=== PATIENT | male | born 1950 | race African-American/Black ===

== ENCOUNTER 2016-12-16 09:54 | Inpatient (IN) | payer OTHER ==
[2016-12-16] MEDS ORDERED: ZOFRAN INJ 4 MG VIAL IVP PRN (12:21)
[2016-12-16] MEDS ORDERED: HumuLIN R SUBCUT PRN (12:21)
[2016-12-16 13:37] LABS: BASOPHILS # (AUTO) 0.1 X10^3/uL (0.0-0.1); BASOPHILS % (AUTO) 1.3 % (0.2-1.0); EOSINOPHILS # (AUTO) 0.3 x10^3/uL (0.0-0.2); EOSINOPHILS % (AUTO) 3.2 % (0.9-2.9); HEMATOCRIT 34.6 % (42.0-54.0); HEMOGLOBIN 11.5 g/dL (13.5-18.0); LYMPHOCYTES # (AUTO) 2.9 X10^3/uL (1.3-2.9); LYMPHOCYTES % (AUTO) 32.7 % (21.0-51.0); MEAN CORPUSCULAR HEMOGLOBIN 26.8 pg (27.0-34.0); MEAN CORPUSCULAR HGB CONC 33.2 g/dL (33.0-35.0); MONOCYTES # (AUTO) 0.7 x10^3/uL (0.3-0.8); MONOCYTES % (AUTO) 8.5 % (0.0-13.0); NEUTROPHILS # (AUTO) 4.7 x10^3/uL (2.2-4.8); NEUTROPHILS % (AUTO) 54.3 % (42.0-75.0); PLATELET COUNT 245 X10^3/uL (150.0-450.0); RED BLOOD COUNT 4.27 X10^6/uL (4.7-6.0); RED CELL DISTRIBUTION WIDTH 14.9 % (11.6-16.5); WHITE BLOOD COUNT 8.7 X10^3/uL (3.6-10.0)
[2016-12-16 14:15] LABS: ALANINE AMINOTRANSFERASE 22 Units/L (12-78); ALBUMIN 3.3 g/dL (3.4-5.0); ALKALINE PHOSPHATASE 83 Units/L (46-116); ASPARTATE AMINO TRANSFERASE 15 Units/L (15-37); BLOOD UREA NITROGEN 60 mg/dL (7-18); CALCIUM 8.6 mg/dL (8.5-10.1); CARBON DIOXIDE 17.6 mmol/L (21-32); CHLORIDE 105 mmol/L (98-107); COR CA(FOR HYPOALB) 9.2 mg/dL (8.5-10.1); CREATININE 3.83 mg/dL (0.70-1.30); GLUCOSE 99 mg/dL (65-99); SODIUM 136 mmol/L (136-145); eGFR BLACK RACES 20 (>60); eGFR NON BLACK RACES 17 (>60)
[2016-12-16] MEDS: NS 1000 ML 1,000 ML IV SCH (14:58)
[2016-12-16 15:24] LABS: BILIRUBIN,URINE NEGATIVE (NEGATIVE); BLOOD/HEMOGLOBIN,URINE NEGATIVE (NEGATIVE); GLUCOSE, URINE NEGATIVE (NEGATIVE); KETONES,URINE NEGATIVE (NEGATIVE); LEUKOCYTE ESTERASE ,URINE NEGATIVE (NEGATIVE); NITRITES,URINE NEGATIVE (NEGATIVE); PROTEIN,URINE 1+ (NEGATIVE); UROBILINOGEN,URINE NORMAL (NORMAL)
[2016-12-16 15:37] LABS: APPEARANCE,URINE CLEAR (CLEAR); COLOR,URINE PALE YELLOW (YELLOW); RBC,URINE NONE SEEN /HPF (NEGATIVE)
[2016-12-16] MEDS: PROTONIX INJ 40 MG VIAL IVP SCH ×2 (15:37→21:38)
[2016-12-16 15:38] LABS: BACTERIA,URINE NEGATIVE /HPF (NEGATIVE); SQUAMOUS EPITHELIAL CELL,UR RARE /HPF (NEGATIVE)
[2016-12-16 15:43] VITALS: BMI 36.8
--- NOTE | 2016-12-16 18:29 | RAD ---
HISTORY: Nausea, vomiting and diarrhea. Study: Acute abdominal series. Comparison: None. Findings: The trachea is midline. The cardiac silhouette is normal. The lungs are clear without fo tate infiltrate or effusion. The bony thorax is unremarkable. Flat plate and upright evaluation of the abdomen demonstrates a nonobstructive bowel gas pattern. Th ere is a moderate amount of stool within the ascending colon. There is no intraperitoneal free air o r abnormal air-fluid levels on upright imaging. The bony structures are grossly intact. IMPRESSION: 1. No acute cardiopulmonary disease. 2. No evidence for acute abdominal pathology. Reported By:
[2016-12-16 23:12] LABS: CRYPTOSPORIDIUM PARVUM ANTIGEN NEGATIVE (NEGATIVE); GIARDIA LAMBLIA ANTIGEN NEGATIVE (NEGATIVE)
[2016-12-17 05:25] LABS: ALANINE AMINOTRANSFERASE 19 Units/L (12-78); ALBUMIN 3.1 g/dL (3.4-5.0); ALKALINE PHOSPHATASE 76 Units/L (46-116); ASPARTATE AMINO TRANSFERASE 12 Units/L (15-37); BLOOD UREA NITROGEN 44 mg/dL (7-18); CALCIUM 8.6 mg/dL (8.5-10.1); CARBON DIOXIDE 19.2 mmol/L (21-32); CHLORIDE 109 mmol/L (98-107); COR CA(FOR HYPOALB) 9.3 mg/dL (8.5-10.1); CREATININE 2.61 mg/dL (0.70-1.30); GLUCOSE 95 mg/dL (65-99); SODIUM 139 mmol/L (136-145); TOTAL PROTEIN 7.4 g/dL (6.4-8.2); eGFR BLACK RACES 32 (>60); eGFR NON BLACK RACES 26 (>60)
[2016-12-17] MEDS: NS 1000 ML 1,000 ML IV SCH ×2 (05:28)
[2016-12-17 05:45] LABS: BASOPHILS # (AUTO) 0.1 X10^3/uL (0.0-0.1); BASOPHILS % (AUTO) 0.7 % (0.2-1.0); EOSINOPHILS # (AUTO) 0.3 x10^3/uL (0.0-0.2); EOSINOPHILS % (AUTO) 4.9 % (0.9-2.9); HEMATOCRIT 31.8 % (42.0-54.0); HEMOGLOBIN 10.7 g/dL (13.5-18.0); LYMPHOCYTES # (AUTO) 3.1 X10^3/uL (1.3-2.9); LYMPHOCYTES % (AUTO) 43.2 % (21.0-51.0); MEAN CORPUSCULAR HEMOGLOBIN 26.7 pg (27.0-34.0); MEAN CORPUSCULAR HGB CONC 33.6 g/dL (33.0-35.0); MEAN CORPUSCULAR VOLUME 79.5 fL (80.0-100.0); MEAN PLATELET VOLUME 8.8 fL (7.4-11.0); MONOCYTES # (AUTO) 0.6 x10^3/uL (0.3-0.8); MONOCYTES % (AUTO) 8.9 % (0.0-13.0); NEUTROPHILS % (AUTO) 42.3 % (42.0-75.0); PLATELET COUNT 249 X10^3/uL (150.0-450.0); RED CELL DISTRIBUTION WIDTH 14.8 % (11.6-16.5); WHITE BLOOD COUNT 7.1 X10^3/uL (3.6-10.0)
[2016-12-17] MEDS ORDERED: PREVNAR 13 IM ONE ×2 (08:39→11:52)
[2016-12-17] MEDS: PROTONIX INJ 40 MG VIAL IVP SCH ×2 (10:21→21:09)
[2016-12-17] MEDS ORDERED: KAYEXALATE PO ONE (13:14)
[2016-12-17] MEDS ORDERED: CODEINE PO PRN (13:15)
[2016-12-17] MEDS ORDERED: ACETAMINOPHEN PO PRN (13:15)
[2016-12-17] MEDS ORDERED: [UNRECOGNIZED DRUG - OTHER] PO PRN (13:15)
--- NOTE | 2016-12-17 13:21 | DR.H&P ---
H&P - History & Physical for Day of: H&P Date: 12/16/16 - Chief Complaint Chief Complaint: N/V/D, ABDOMINAL PAIN, DIZZINESS - Allergies Allergies/Adverse Reactions: Allergies Allergy/AdvReac Type Severity Reaction Status Date / Time Cephalosporins Allergy Verified 12/16/16 11:07 - History of Present Illness History of Present Illness: PT WAS A DIRECT ADMIT FROM DR RAMÍREZ YANG OFFICE WITH CO N/V/D AND ABDOMINAL PAIN, AND DIZZINESS. PT HAS PMH OF HTN, OA, DM. PLAN TO ADMIT FOR IV HYDRATION, STOOL STUDIES, ABD SERIES XRAY, IV PROTONIX. TREATMENT OF DEHYDRATION. - Past Medical History Past Medical History: Arthritis, Depression, Diabetes, GERD, Hypertension - Family History Family Medical History: Diabetes Mellitus, Heart Failure, Hypertension - Social History Does patient currently use any type of tobacco product: No Have you used tobacco products in the last 12 months: No Type of Tobacco Use: None Does any household member use tobacco: No Alcohol Use: None Drug Use: None - Medications Home Medications: Acetaminophen W/ Codeine [Acetaminophen/Codeine 300-60 mg] 1 tab PO Q8H PRN [History Confirmed 12/16/16] Aspirin [Aspirin Adult Low Dose] 1 tab PO DAILY 12/16/16 [History Confirmed ] Benzonatate [Tessalon Perles] 2 cap PO TID PRN 12/16/16 [History Confirmed 12/16] Diclofenac Potassium (Migraine [[place]] 1 tab PO BID 12/16/16 [History Confirmed 12/16/16] Lisinopril 1 tab PO DAILY 12/16/16 [History Confirmed 12/16/16] Loratadine 1 tab PO DAILY 12/16/16 [History Confirmed 12/16/16] Metformin HCl [Metformin HCl ER] 2 tab PO BID 12/16/16 [History Confirmed ] Montelukast Sodium 1 tab PO HS 12/16/16 [History Confirmed 12/16/16] Promethazine HCl 1 tab PO TID PRN 12/16/16 [History Confirmed 12/16/16] Tamsulosin HCl 1 cap PO DAILY 12/16/16 [History Confirmed 12/16/16] Tramadol HCl [ULTRAM 50 MG *] 1 - 2 tab PO Q8H PRN 12/16/16 [History Confirmed 12/16/16] - Review of Systems Constitutional: Weakness Eyes: No Symptoms Reported ENT: No Symptoms Reported Respiratory: No Symptoms Reported Cardiovascular: No Symptoms Reported Gastrointestinal: Nausea, Vomiting, Abdominal Pain Genitourinary: No Symptoms Reported Musculoskeletal: No Symptoms Reported Skin: No Symptoms Reported Neurological: Other (DIZZINESS) - Physical Exam Vital Signs: Temperature 98.4 F Pulse Rate [Right Brachial] 90 Respiratory Rate 18 Blood Pressure [Right Arm] 125/60 O2 Sat by Pulse Oximetry 97 Oriented: Normal Eyes: Normal Ear: Normal Nose: Normal Throat: Dry Respiratory: Clear Throughout Cardiovascular: Normal : Normal Auscultation: Bowel Sounds: Normal Palpation: Normal Tenderness: Epigastric (MILD) Skin: Normal Musculoskeletal: Back:Lumbar Psychiatric: Normal Mood Description: Calm Speech Pattern: Clear, Appropriate - Assessment/Plan (1) Dehydration Status: Acute Plan: ADMIT, IV HYDRATION, NS AT 80CC/HR, ADMISSION LABS, STOOL STUDIES. CBC CMP Q AM, ABDOMINAL SERIES ON ADMISSION. BLOOD SUGAR CONTROL WITH SSI. PPI, NAUSEA CONTROL (2) Nausea vomiting and diarrhea Status: Acute (3) Diabetes mellitus, type II Qualifiers: Diabetes mellitus complication status: D Diabetes mellitus complication detail: D Diabetic retinopathy severity: D Proliferative retinopathy type: P Diabetes mellitus macular edema: D Diabetes mellitus alf insulin use : D Laterality: L Chronic kidney disease stage: C Status: Chronic (4) GERD (gastroesophageal reflux disease) Qualifiers: Esophagitis presence: E Status: Chronic (5) Hx-TIA (transient ischemic attack) Status: Chronic
--- NOTE | 2016-12-17 13:29 | PCM.PROG ---
Progress Note - Progress Note for Day of Date: 12/17/16 - Subjective Subjective: DENIES N/V/D THIS AM. ASKING FOR TRAY FOR BREAKFAST, PT HAS STOOL SPECIMEN YESTERDAY, NEGATIVE. ABD SERIES REVEALED CONSTIPATION, PT HAS IMPROVED RENAL FUNCTION THIS AM AFTER IV HYDRATION, CONTINUE RENAL FAILURE. PT CO DIZZINESS CONTINUES. CT HEAD, EKG AND CE'S ORDERED STAT, KAEXALATE PO X 1 DOSE OR HYPERKALEMIA. ENCOURAGE ORAL HYDRATION, REPEAT AM LABS - Past Medical Family Social History Past Med/Fam/Surg Hx: No changes since H&P Allergies: Allergies Cephalosporins Allergy (Verified 12/16/16 11:07) - Review of Systems ROS: No change since H&P - Vital Signs and I&O's Vital Signs: Temperature 98.4 F Pulse Rate [Right Brachial] 90 Respiratory Rate 18 Blood Pressure [Right Arm] 125/60 O2 Sat by Pulse Oximetry 97 Intake and Output: Intake & Output 12/15/16 12/16/16 12/17/16 12/18/16 11:59 11:59 11:59 11:59 Intake Total 1097 Balance 1097 - Physical Exam Oriented: Normal Eyes: Normal Ear: Normal Nose: Normal Throat: Dry Cardiovascular: Normal : Normal Auscultation: Bowel Sounds: Normal Tenderness: Epigastric (MILD) Skin: Normal Musculoskeletal: Back:Lumbar Psychiatric: Normal Mood Description: Calm Speech Pattern: Clear, Appropriate - Laboratory and Diagnostics Result Diagrams: 12/17/16 04:00 12/17/16 04:00 Labs: 12/16/16 21:54 Stool Stool Culture - Preliminary 12/16/16 21:54 Stool - Final 12/16/16 15:09 Urine,Clean Catch Urine Culture - Preliminary Laboratory WBC 7.1 X10^3/uL (3.6-10.0) 12/17/16 04:00 RBC 4.00 X10^6/uL (4.7-6.0) L 12/17/16 04:00 Hgb 10.7 g/dL (13.5-18.0) L 12/17/16 04:00 Hct 31.8 % (42.0-54.0) L 12/17/16 04:00 MCV 79.5 fL (80.0-100.0) L 12/17/16 04:00 MCH 26.7 pg (27.0-34.0) L 12/17/16 04:00 MCHC 33.6 g/dL (33.0-35.0) 12/17/16 04:00 RDW 14.8 % (11.6-16.5) 12/17/16 04:00 Plt Count 249 X10^3/uL (150.0-450.0) 12/17/16 04:00 MPV 8.8 fL (7.4-11.0) 12/17/16 04:00 Neut % 42.3 % (42.0-75.0) 12/17/16 04:00 Lymph % 43.2 % (21.0-51.0) 12/17/16 04:00 [place] % 8.9 % (0.0-13.0) 12/17/16 04:00 Eos % 4.9 % (0.9-2.9) H 12/17/16 04:00 Baso % 0.7 % (0.2-1.0) 12/17/16 04:00 Neut # 3.0 x10^3/uL (2.2-4.8) 12/17/16 04:00 Lymph # 3.1 X10^3/uL (1.3-2.9) H 12/17/16 04:00 [place] # 0.6 x10^3/uL (0.3-0.8) 12/17/16 04:00 Eos # 0.3 x10^3/uL (0.0-0.2) H 12/17/16 04:00 Baso # 0.1 X10^3/uL (0.0-0.1) 12/17/16 04:00 Absolute Nucleated RBC 0.0 /100WBC 12/17/16 04:00 Sodium 139 mmol/L (136-145) 12/17/16 04:00 Corrected Sodium TNP 12/17/16 04:00 Potassium 5.4 mmol/L (3.5-5.1) H 12/17/16 04:00 Chloride 109 mmol/L (98-107) H 12/17/16 04:00 Carbon Dioxide 19.2 mmol/L (21-32) L 12/17/16 04:00 BUN 44 mg/dL (7-18) H 12/17/16 04:00 Creatinine 2.61 mg/dL (0.70-1.30) H 12/17/16 04:00 Est GFR (MDRD) Af Amer 32 (>60) L 12/17/16 04:00 Est GFR (MDRD) Non-Af 26 (>60) L 12/17/16 04:00 Glucose 95 mg/dL (65-99) 12/17/16 04:00 Calcium 8.6 mg/dL (8.5-10.1) 12/17/16 04:00 Corrected Calcium 9.3 mg/dL (8.5-10.1) 12/17/16 04:00 Total Bilirubin 0.30 mg/dL (0.2-1.0) 12/17/16 04:00 AST 12 Units/L (15-37) L 12/17/16 04:00 ALT 19 Units/L (12-78) 12/17/16 04:00 Alkaline Phosphatase 76 Units/L (46-116) 12/17/16 04:00 Total Protein 7.4 g/dL (6.4-8.2) 12/17/16 04:00 Albumin 3.1 g/dL (3.4-5.0) L 12/17/16 04:00 Globulin 4.3 g/dL (2.5-4.5) 12/17/16 04:00 Albumin/Globulin Ratio 0.7 Ratio (1.1-2.1) L 12/17/16 04:00 Specimen Type Clean catch urine 12/16/16 15:09 Urine Color Pale yellow (YELLOW) 12/16/16 15:09 Urine Appearance Clear (CLEAR) 12/16/16 15:09 Urine pH 5.0 (5.0 - 8.0) 12/16/16 15:09 Ur Specific [place] 1.010 (1.000-1.030) 12/16/16 15:09 Urine Protein 1+ (NEGATIVE) 12/16/16 15:09 Urine Glucose (UA) Negative (NEGATIVE) 12/16/16 15:09 Urine Ketones Negative (NEGATIVE) 12/16/16 15:09 Urine Occult Blood Negative (NEGATIVE) 12/16/16 15:09 Urine Nitrite Negative (NEGATIVE) 12/16/16 15:09 Urine Bilirubin Negative (NEGATIVE) 12/16/16 15:09 Urine Urobilinogen Normal (NORMAL) 12/16/16 15:09 Ur Leukocyte Esterase Negative (NEGATIVE) 12/16/16 15:09 Urine RBC None seen /HPF (NEGATIVE) 12/16/16 15:09 Urine WBC None seen /HPF (NEGATIVE) 12/16/16 15:09 Ur Squamous Epith Cells Rare /HPF (NEGATIVE) 12/16/16 15:09 Urine Bacteria Negative /HPF (NEGATIVE) 12/16/16 15:09 Ur Culture Indicated? Yes/culture set up 12/16/16 15:09 Stool Description 250 g dark brown 12/16/16 21:54 Stl Occult Blood (IFOB) Negative (NEGATIVE) 12/16/16 21:54 Stl C. diff Tox B Gene Negative (NEGATIVE) 12/16/16 21:54 Stl C. diff 027-NAP1-BI Negative (NEGATIVE) 12/16/16 21:54 Cryptosporid parvum Ag Negative (NEGATIVE) 12/16/16 21:54 E. histolytica Antigen Negative (NEGATIVE) 12/16/16 21:54 Giardia lamblia Ag Negative (NEGATIVE) 12/16/16 21:54 - Plan (1) Acute renal failure Status: Acute Qualifiers: Acute renal failure type: A Plan: WITH HYPERKALEMIA, CONTIUE IV HYDRATION. ENCOURAGE ORAL HYDRATION, REPEAT AM LABS. KAEXALATE PO X 1 DOSE (2) Dehydration Status: Acute Plan: CONTINUE IV HYDRATION. REPEAT AM LABS (3) Nausea vomiting and diarrhea Status: Acute (4) Diabetes mellitus, type II Status: Chronic Qualifiers: Diabetes mellitus complication status: D Diabetes mellitus complication detail: D Diabetic retinopathy severity: D Proliferative retinopathy type: P Diabetes mellitus macular edema: D Diabetes mellitus assisted insulin use : D Laterality: L Chronic kidney disease stage: C (5) GERD (gastroesophageal reflux disease) Status: Chronic Qualifiers: Esophagitis presence: E (6) Hx-TIA (transient ischemic attack) Status: Chronic Plan: CONTINUED DIZZINESS THIS AM, CT HEAD. EKG, CE'S, BP AND LIPID CONTROL
[2016-12-17 14:01] LABS: CKMB % 1.7 % (<4); CREATINE KINASE 58 Units/L (39-308); CREATINE KINASE MB < 1.0 ng/mL (0-4.0); TROPONIN I < 0.02 ng/mL (0-1.5)
[2016-12-17] MEDS: TYLENOL #3 TAB (W/CODEINE) PO SCH ×2 (14:57→21:09)
[2016-12-17] MEDS: ASPIRIN EC 81 MG PO SCH (15:06)
[2016-12-17] MEDS: ZESTRIL TAB 10 MG PO SCH (15:06)
--- NOTE | 2016-12-17 17:26 | CT ---
HISTORY: Mental status changes Study: CT brain without contrast Comparison: none Technique: Multiple axial images of the brain were obtained from the skull base to the vertex without administr ation of IV contrast. Findings: The ventricles are borderline enlarged and there is diffuse mild prominence of the cortical sulci. T here is focal low-density and atrophy along the left frontal lobe superiorly extending anteriorly co nsistent with encephalomalacia. No intracranial hemorrhage or edema is seen and there is no extra-ax ial fluid collection or mass. There is mild periventricular low density bilaterally. 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 Minimal atrophy and mild chronic microischemic changes in the deep white matter with no acute intrac ranial abnormality. Reported By:
[2016-12-17] MEDS: SNACK - Diabetic Appropriate PO SCH (21:14)
[2016-12-18 04:57] LABS: BASOPHILS # (AUTO) 0.1 X10^3/uL (0.0-0.1); BASOPHILS % (AUTO) 1.5 % (0.2-1.0); EOSINOPHILS # (AUTO) 0.3 x10^3/uL (0.0-0.2); EOSINOPHILS % (AUTO) 4.9 % (0.9-2.9); HEMATOCRIT 30.4 % (42.0-54.0); HEMOGLOBIN 10.2 g/dL (13.5-18.0); LYMPHOCYTES % (AUTO) 44.3 % (21.0-51.0); MEAN CORPUSCULAR HEMOGLOBIN 26.9 pg (27.0-34.0); MEAN CORPUSCULAR HGB CONC 33.6 g/dL (33.0-35.0); MEAN PLATELET VOLUME 8.5 fL (7.4-11.0); MONOCYTES # (AUTO) 0.5 x10^3/uL (0.3-0.8); MONOCYTES % (AUTO) 7.4 % (0.0-13.0); NEUTROPHILS # (AUTO) 2.9 x10^3/uL (2.2-4.8); NEUTROPHILS % (AUTO) 41.9 % (42.0-75.0); PLATELET COUNT 232 X10^3/uL (150.0-450.0); RED CELL DISTRIBUTION WIDTH 15.2 % (11.6-16.5); WHITE BLOOD COUNT 6.9 X10^3/uL (3.6-10.0)
[2016-12-18 05:09] LABS: ALANINE AMINOTRANSFERASE 17 Units/L (12-78); ALKALINE PHOSPHATASE 71 Units/L (46-116); AMYLASE 67 Units/L (25-115); ASPARTATE AMINO TRANSFERASE 14 Units/L (15-37); BLOOD UREA NITROGEN 29 mg/dL (7-18); CALCIUM 8.6 mg/dL (8.5-10.1); CHLORIDE 109 mmol/L (98-107); COR CA(FOR HYPOALB) 9.4 mg/dL (8.5-10.1); CREATININE 1.93 mg/dL (0.70-1.30); GLUCOSE 98 mg/dL (65-99); LIPASE 306 Units/L (73-393); SODIUM 142 mmol/L (136-145); TOTAL PROTEIN 7.2 g/dL (6.4-8.2); eGFR BLACK RACES 45 (>60); eGFR NON BLACK RACES 37 (>60)
[2016-12-18] MEDS: NS 1000 ML 1,000 ML IV SCH ×2 (05:27→17:45)
[2016-12-18] MEDS: TYLENOL #3 TAB (W/CODEINE) PO SCH ×3 (05:41→21:11)
[2016-12-18] MEDS: PROTONIX INJ 40 MG VIAL IVP SCH ×2 (09:18→21:11)
[2016-12-18] MEDS: KAYEXALATE PO SCH ×2 (09:18→21:12)
[2016-12-18] MEDS: ASPIRIN EC 81 MG PO SCH (09:18)
[2016-12-18] MEDS: FLOMAX PO SCH (09:18)
[2016-12-18] MEDS: ZESTRIL TAB 10 MG PO SCH (09:18)
[2016-12-18] MEDS ORDERED: RESTORIL CAP 15 MG PO PRN (13:12)
--- NOTE | 2016-12-18 13:32 | PCM.PROG ---
Progress Note - Progress Note for Day of Date: 12/18/16 - Subjective Subjective: patient is a 66-year-old black male who was admitted 2 days ago with complaints of nausea vomiting diarrhea dehydration and dizziness. Patient was in acute renal failure on admission. Patient has received gentle IV hydration with resolution of nausea vomiting and diarrhea. Patient has had elevated potassium and was treated with Kayexalate 1 dose. Patient continued with elevated potassium this morning plan to repeat Kayexalate patient's being in today 29/creatinine 1.93. Patient informed of status. Planned repeat a.m. labs and continue with gentle hydration. - Past Medical Family Social History Past Med/Fam/Surg Hx: No changes since H&P Allergies: Allergies Cephalosporins Allergy (Verified 12/16/16 11:07) - Review of Systems ROS: No change since H&P - Vital Signs and I&O's Vital Signs: Temperature 98.0 F Pulse Rate [Right Brachial] 87 Respiratory Rate 18 Blood Pressure [Right Arm] 136/70 O2 Sat by Pulse Oximetry 98 Intake and Output: Intake & Output 12/16/16 12/17/16 12/18/16 12/19/16 11:59 11:59 11:59 11:59 Intake Total 1097 2628 Output Total 650 Balance 1097 1977 - Physical Exam Oriented: Normal Eyes: Normal Ear: Normal Nose: Normal Throat: Dry Respiratory: Normal Cardiovascular: Normal : Normal Auscultation: Bowel Sounds: Normal Tenderness: Epigastric (MILD) Skin: Normal Musculoskeletal: Knee (left knee), Back:Lumbar Psychiatric: Normal Mood Description: Calm Speech Pattern: Clear, Appropriate - Laboratory and Diagnostics Result Diagrams: 12/18/16 04:25 12/18/16 04:25 Labs: 12/16/16 13:02 Blood Blood Culture - Preliminary 12/16/16 12:51 Blood Blood Culture - Preliminary 12/16/16 21:54 Stool Stool Culture - Preliminary 12/16/16 21:54 Stool - Final 12/16/16 15:09 Urine,Clean Catch Urine Culture - Final Laboratory WBC 6.9 X10^3/uL (3.6-10.0) 12/18/16 04:25 RBC 3.80 X10^6/uL (4.7-6.0) L 12/18/16 04:25 Hgb 10.2 g/dL (13.5-18.0) L 12/18/16 04:25 Hct 30.4 % (42.0-54.0) L 12/18/16 04:25 MCV 80.0 fL (80.0-100.0) 12/18/16 04:25 MCH 26.9 pg (27.0-34.0) L 12/18/16 04:25 MCHC 33.6 g/dL (33.0-35.0) 12/18/16 04:25 RDW 15.2 % (11.6-16.5) 12/18/16 04:25 Plt Count 232 X10^3/uL (150.0-450.0) 12/18/16 04:25 MPV 8.5 fL (7.4-11.0) 12/18/16 04:25 Neut % 41.9 % (42.0-75.0) L 12/18/16 04:25 Lymph % 44.3 % (21.0-51.0) 12/18/16 04:25 [place] % 7.4 % (0.0-13.0) 12/18/16 04:25 Eos % 4.9 % (0.9-2.9) H 12/18/16 04:25 Baso % 1.5 % (0.2-1.0) H 12/18/16 04:25 Neut # 2.9 x10^3/uL (2.2-4.8) 12/18/16 04:25 Lymph # 3.0 X10^3/uL (1.3-2.9) H 12/18/16 04:25 [place] # 0.5 x10^3/uL (0.3-0.8) 12/18/16 04:25 Eos # 0.3 x10^3/uL (0.0-0.2) H 12/18/16 04:25 Baso # 0.1 X10^3/uL (0.0-0.1) 12/18/16 04:25 Absolute Nucleated RBC 0.0 /100WBC 12/18/16 04:25 Sodium 142 mmol/L (136-145) 12/18/16 04:25 Corrected Sodium TNP 12/18/16 04:25 Potassium 5.2 mmol/L (3.5-5.1) H 12/18/16 04:25 Chloride 109 mmol/L (98-107) H 12/18/16 04:25 Carbon Dioxide 21.0 mmol/L (21-32) 12/18/16 04:25 BUN 29 mg/dL (7-18) H 12/18/16 04:25 Creatinine 1.93 mg/dL (0.70-1.30) H 12/18/16 04:25 Est GFR (MDRD) Af Amer 45 (>60) L 12/18/16 04:25 Est GFR (MDRD) Non-Af 37 (>60) L 12/18/16 04:25 Glucose 98 mg/dL (65-99) 12/18/16 04:25 Calcium 8.6 mg/dL (8.5-10.1) 12/18/16 04:25 Corrected Calcium 9.4 mg/dL (8.5-10.1) 12/18/16 04:25 Total Bilirubin 0.30 mg/dL (0.2-1.0) 12/18/16 04:25 AST 14 Units/L (15-37) L 12/18/16 04:25 ALT 17 Units/L (12-78) 12/18/16 04:25 Alkaline Phosphatase 71 Units/L (46-116) 12/18/16 04:25 Creatine Kinase 58 Units/L (39-308) 12/17/16 13:27 CK-MB (CK-2) < 1.0 ng/mL (0-4.0) 12/17/16 13:27 CK/CKMB % Calc 1.7 % (<4) 12/17/16 13:27 Troponin I < 0.02 ng/mL (0-1.5) 12/17/16 13:27 Total Protein 7.2 g/dL (6.4-8.2) 12/18/16 04:25 Albumin 3.0 g/dL (3.4-5.0) L 12/18/16 04:25 Globulin 4.2 g/dL (2.5-4.5) 12/18/16 04:25 Albumin/Globulin Ratio 0.7 Ratio (1.1-2.1) L 12/18/16 04:25 Amylase 67 Units/L (25-115) 12/18/16 04:25 Lipase 306 Units/L (73-393) 12/18/16 04:25 Specimen Type Clean catch urine 12/16/16 15:09 Urine Color Pale yellow (YELLOW) 12/16/16 15:09 Urine Appearance Clear (CLEAR) 12/16/16 15:09 Urine pH 5.0 (5.0 - 8.0) 12/16/16 15:09 Ur Specific [place] 1.010 (1.000-1.030) 12/16/16 15:09 Urine Protein 1+ (NEGATIVE) 12/16/16 15:09 Urine Glucose (UA) Negative (NEGATIVE) 12/16/16 15:09 Urine Ketones Negative (NEGATIVE) 12/16/16 15:09 Urine Occult Blood Negative (NEGATIVE) 12/16/16 15:09 Urine Nitrite Negative (NEGATIVE) 12/16/16 15:09 Urine Bilirubin Negative (NEGATIVE) 12/16/16 15:09 Urine Urobilinogen Normal (NORMAL) 12/16/16 15:09 Ur Leukocyte Esterase Negative (NEGATIVE) 12/16/16 15:09 Urine RBC None seen /HPF (NEGATIVE) 12/16/16 15:09 Urine WBC None seen /HPF (NEGATIVE) 12/16/16 15:09 Ur Squamous Epith Cells Rare /HPF (NEGATIVE) 12/16/16 15:09 Urine Bacteria Negative /HPF (NEGATIVE) 12/16/16 15:09 Ur Culture Indicated? Yes/culture set up 12/16/16 15:09 Stool Description 250 g dark brown 12/16/16 21:54 Stl Occult Blood (IFOB) Negative (NEGATIVE) 12/16/16 21:54 Stl C. diff Tox B Gene Negative (NEGATIVE) 12/16/16 21:54 Stl C. diff [id number] Negative (NEGATIVE) 12/16/16 21:54 Cryptosporid parvum Ag Negative (NEGATIVE) 12/16/16 21:54 E. histolytica Antigen Negative (NEGATIVE) 12/16/16 21:54 Giardia lamblia Ag Negative (NEGATIVE) 12/16/16 21:54 - Plan (1) Acute renal failure Status: Acute Qualifiers: Acute renal failure type: A Plan: WITH HYPERKALEMIA, CONTIUE IV HYDRATION. ENCOURAGE ORAL HYDRATION, REPEAT AM LABS. KAEXALATE (2) Dehydration Status: Acute Plan: CONTINUE IV HYDRATION. REPEAT AM LABS (3) Nausea vomiting and diarrhea Status: Acute (4) Diabetes mellitus, type II Status: Chronic Qualifiers: Diabetes mellitus complication status: D Diabetes mellitus complication detail: D Diabetic retinopathy severity: D Proliferative retinopathy type: P Diabetes mellitus macular edema: D Diabetes mellitus intermission coordinator insulin use : D Laterality: L Chronic kidney disease stage: C (5) GERD (gastroesophageal reflux disease) Status: Chronic Qualifiers: Esophagitis presence: E (6) Hx-TIA (transient ischemic attack) Status: Chronic Plan: continue with iv hydration and repeat am labs
[2016-12-18] MEDS ORDERED: NORCO 7.5/325 MG TAB PO PRN (13:34)
--- NOTE | 2016-12-18 17:12 | RAD ---
Two views of the right knee Indication: Knee pain Findings: There is mild medial femorotibial compartment joint space loss. There is no significant yusef int effusion or evidence of fracture dislocation within the right knee. No localizing soft tissue sw elling. Impression: Mild medial femorotibial compartment osteoarthrosis without fracture, dislocation or sig nificant joint effusion. Reported By:
[2016-12-18] MEDS: SNACK - Diabetic Appropriate PO SCH (21:12)
[2016-12-19 05:27] LABS: ALANINE AMINOTRANSFERASE 20 Units/L (12-78); ALBUMIN 2.8 g/dL (3.4-5.0); ALKALINE PHOSPHATASE 64 Units/L (46-116); ASPARTATE AMINO TRANSFERASE 14 Units/L (15-37); BLOOD UREA NITROGEN 19 mg/dL (7-18); CALCIUM 8.3 mg/dL (8.5-10.1); CARBON DIOXIDE 24.8 mmol/L (21-32); CHLORIDE 110 mmol/L (98-107); COR CA(FOR HYPOALB) 9.3 mg/dL (8.5-10.1); GLUCOSE 108 mg/dL (65-99); SODIUM 142 mmol/L (136-145); TOTAL PROTEIN 6.9 g/dL (6.4-8.2); eGFR BLACK RACES 52 (>60); eGFR NON BLACK RACES 43 (>60)
[2016-12-19] MEDS: TYLENOL #3 TAB (W/CODEINE) PO SCH (05:52)
[2016-12-19 06:01] LABS: BASOPHILS # (AUTO) 0.1 X10^3/uL (0.0-0.1); BASOPHILS % (AUTO) 0.9 % (0.2-1.0); EOSINOPHILS # (AUTO) 0.4 x10^3/uL (0.0-0.2); EOSINOPHILS % (AUTO) 5.6 % (0.9-2.9); HEMATOCRIT 29.1 % (42.0-54.0); HEMOGLOBIN 9.7 g/dL (13.5-18.0); LYMPHOCYTES # (AUTO) 2.7 X10^3/uL (1.3-2.9); MEAN CORPUSCULAR HEMOGLOBIN 26.7 pg (27.0-34.0); MEAN CORPUSCULAR HGB CONC 33.3 g/dL (33.0-35.0); MEAN CORPUSCULAR VOLUME 80.3 fL (80.0-100.0); MEAN PLATELET VOLUME 8.6 fL (7.4-11.0); MONOCYTES # (AUTO) 0.6 x10^3/uL (0.3-0.8); MONOCYTES % (AUTO) 8.6 % (0.0-13.0); NEUTROPHILS # (AUTO) 2.9 x10^3/uL (2.2-4.8); NEUTROPHILS % (AUTO) 43.9 % (42.0-75.0); PLATELET COUNT 233 X10^3/uL (150.0-450.0); RED BLOOD COUNT 3.62 X10^6/uL (4.7-6.0); RED CELL DISTRIBUTION WIDTH 15.2 % (11.6-16.5); WHITE BLOOD COUNT 6.6 X10^3/uL (3.6-10.0)
[2016-12-19] MEDS: ASPIRIN EC 81 MG PO SCH (09:05)
[2016-12-19] MEDS: FLOMAX PO SCH (09:05)
[2016-12-19] MEDS: ZESTRIL TAB 10 MG PO SCH (09:05)
[2016-12-19] MEDS: PROTONIX INJ 40 MG VIAL IVP SCH (09:06)
[2016-12-19 10:10] VITALS: BP 147/70
== END 2016-12-19 09:55 | disposition home or self-care (01) | DRG 684 ==
LOC: UNDOADMOB 09:54 → MED/SURG 09:54 → OBSVTOIN 11:41
PROVIDERS: ADMIT Internal Medicine; ATTEND Internal Medicine
DX: N17.8 Other acute kidney failure (principal); E86.0 Dehydration; E87.5 Hyperkalemia; R11.2 Nausea with vomiting, unspecified; R19.7 Diarrhea, unspecified; R10.84 Generalized abdominal pain; R42 Dizziness and giddiness; I10 Essential (primary) hypertension; E11.9 Type 2 diabetes mellitus without complications; K21.9 Gastro-esophageal reflux disease without esophagitis; Z86.73 Personal history of transient ischemic attack (TIA), and cerebral infarction without residual deficits; K59.09 Other constipation
CPT/HCPCS: 36415; 70450; 73560; 74022; 80053; 81001; 82150; 82270; 82550; 82553; 83690; 84484; 85025; 87040; 87045; 87086; 87328; 87329; 87336; 87427; 87493; 87899; 93005; 93010; A4222; C9113; 90670